=== PATIENT | female | born 1945 | race Two or more races ===

== ENCOUNTER 2023-11-13 11:01 | Inpatient (IN) | payer MEDICAID ==
[~2023-11-13] VITALS: Ht 160 cm; Wt 45.4 kg
[2023-11-13 11:23] LABS: BASOPHILS # (AUTO) 0.1 K/uL (0.0-0.2); EOSINOPHILS % (AUTO) 0.2 % (0.0-6.0); HEMATOCRIT 32 % (33-45); LYMPHOCYTES # (AUTO) 0.8 K/uL (0.8-4.8); LYMPHOCYTES % (AUTO) 13.6 % (20.0-44.0); MEAN CORPUSCULAR HEMOGLOBIN 33 PG (26.0-33.0); MEAN CORPUSCULAR HGB CONC 35 g/dl (31.0-36.0); MEAN CORPUSCULAR VOLUME 95 fL (82-100); MONOCYTES # (AUTO) 0.4 K/uL (0.1-1.30); MONOCYTES % (AUTO) 7.6 % (2.0-12.0); NEUTROPHILS # (AUTO) 4.4 K/uL (1.8-8.9); NEUTROPHILS % (AUTO) 77.6 % (43.0-81.0); PLATELET COUNT (AUTO) 388 K/uL (150-450); RED BLOOD CELL COUNT(AUTO) 3.34 MIL/uL (4.0-5.2); RED CELL DISTRIBUTION WIDTH 13.4 % (11.5-15.0); WHITE BLOOD COUNT (AUTO) 5.6 K/uL (4.3-11.0)
[2023-11-13] MEDS ORDERED: ASPIRIN 325 MG TABLET ONE (11:49)
[2023-11-13] MEDS: ASPIRIN 325 MG TABLET PO ONE (11:54)
[2023-11-13 11:58] LABS: ALANINE AMINOTRANSFERASE 53 U/L (12-78); ALBUMIN 3.6 g/dL (3.4-5.0); ALKALINE PHOSPHATASE 131 U/L (46-116); ASPARTATE AMINOTRANSFERASE 37 U/L (15-37); BILIRUBIN,DIRECT 0.1 mg/dL (0.0-0.2); BILIRUBIN,TOTAL 0.5 mg/dL (0.2-1.0); CALCIUM, SERUM 8.3 mg/dL (8.5-10.1); CARBON DIOXIDE 26 mmol/L (21-32); CHLORIDE 88 mmol/L (98-107); GLUCOSE 115 mg/dL (74-106); NT-PRO BNP 1182 pg/mL (0-125); POTASSIUM 3.7 mmol/L (3.5-5.1); TOTAL PROTEIN, SERUM 7.4 g/dL (6.4-8.2); UREA NITROGEN, BLOOD 9 mg/dL (7-18)
[2023-11-13 12:00] LABS: SODIUM SERUM 120 mmol/L (136-145)
[2023-11-13] MEDS: IV NS 0.9% 1,000 ML BAG IV ONE (12:30)
[2023-11-13] MEDS ORDERED: ATEN100T PO (12:47)
[2023-11-13] MEDS ORDERED: ERGO500093 PO (12:47)
[2023-11-13] MEDS ORDERED: AMIO200T5 PO (12:47)
[2023-11-13] MEDS ORDERED: VOQUEZNA PO (12:47)
[2023-11-13] MEDS ORDERED: LOSA50TA39 PO (12:47)
[2023-11-13] MEDS ORDERED: MORPHINE SULFATE INJ 2 MG/ML DISP.SYRIN IV PRN (13:00)
[2023-11-13] MEDS ORDERED: ONDANSETRON HCL/PF 4 MG/2 ML VIAL IVP PRN (13:00)
[2023-11-13] MEDS ORDERED: ACETAMINOPHEN 325 MG TABLET PO PRN (13:00)
[2023-11-13 14:30] VITALS: BP 133/75; TEMP 98.1
[2023-11-13 16:00] VITALS: BP 145/61; TEMP 98.2; O2SAT 98
[2023-11-13] MEDS: ATENOLOL 50 MG TABLET PO SCH (18:14)
[2023-11-13 20:00] VITALS: BP 148/63; TEMP 97.9; O2SAT 97
[2023-11-13 20:35] LABS: APPEARANCE,URINE CLEAR (CLEAR); BILIRUBIN,URINE NEGATIVE (NEGATIVE); BLOOD, URINE TRACE-INTA Ery/uL (NEGATIVE); COLOR,URINE YELLOW (YELLOW); KETONES,URINE NEGATIVE (NEGATIVE); LEUKOCYTE ESTERASE ,URINE 3+ (NEGATIVE); NITRITE, URINE NEGATIVE (NEGATIVE); PROTEIN,URINE NEGATIVE (NEGATIVE); UGLUCOSE NEGATIVE (NEGATIVE); UROBILINOGEN,URINE 0.2 EU/dL (0.2)
[2023-11-13 21:09] LABS: RBC,URINE 0-2 /HPF (0-2)
[2023-11-13 21:10] LABS: ADD URINE CULTURE YES; BACTERIA,URINE 2+ /HPF (None Seen)
[2023-11-14] VITALS: BP 139/68; TEMP 97.5; O2SAT 97
[2023-11-14 04:00] VITALS: BP 151/82; TEMP 97.7; O2SAT 95
[2023-11-14 06:51] LABS: BASOPHILS % (AUTO) 0.6 % (0.0-2.0); EOSINOPHILS % (AUTO) 0.5 % (0.0-6.0); HEMATOCRIT 34 % (33-45); HEMOGLOBIN 11.7 g/dL (11.5-14.8); LYMPHOCYTES # (AUTO) 0.9 K/uL (0.8-4.8); LYMPHOCYTES % (AUTO) 14.9 % (20.0-44.0); MEAN CORPUSCULAR HEMOGLOBIN 33 PG (26.0-33.0); MEAN CORPUSCULAR HGB CONC 35 g/dl (31.0-36.0); MEAN CORPUSCULAR VOLUME 95 fL (82-100); MONOCYTES # (AUTO) 0.4 K/uL (0.1-1.30); MONOCYTES % (AUTO) 7.4 % (2.0-12.0); NEUTROPHILS # (AUTO) 4.4 K/uL (1.8-8.9); NEUTROPHILS % (AUTO) 76.6 % (43.0-81.0); PLATELET COUNT (AUTO) 390 K/uL (150-450); RED BLOOD CELL COUNT(AUTO) 3.55 MIL/uL (4.0-5.2); RED CELL DISTRIBUTION WIDTH 13.1 % (11.5-15.0); WHITE BLOOD COUNT (AUTO) 5.7 K/uL (4.3-11.0)
[2023-11-14 06:56] LABS: ALANINE AMINOTRANSFERASE 48 U/L (12-78); ALBUMIN 3.4 g/dL (3.4-5.0); ALKALINE PHOSPHATASE 132 U/L (46-116); ASPARTATE AMINOTRANSFERASE 33 U/L (15-37); BILIRUBIN,TOTAL 0.3 mg/dL (0.2-1.0); CALCIUM, SERUM 8.6 mg/dL (8.5-10.1); CARBON DIOXIDE 29 mmol/L (21-32); CHLORIDE 99 mmol/L (98-107); CREATININE 0.8 mg/dL (0.6-1.3); GLUCOSE 88 mg/dL (74-106); MAGNESIUM 2.7 mg/dL (1.8-2.4); PHOSPHORUS 4.1 mg/dL (2.5-4.9); POTASSIUM 3.9 mmol/L (3.5-5.1); SODIUM SERUM 135 mmol/L (136-145); TOTAL PROTEIN, SERUM 7.4 g/dL (6.4-8.2); UREA NITROGEN, BLOOD 9 mg/dL (7-18)
[2023-11-14 07:04] LABS: CHOLESTEROL 173 mg/dL (<200); HDL CHOLESTEROL 47 mg/dL (40-60); LDL 101 mg/dL (0-99); TRIGLYCERIDES 113 mg/dL (30-150); URIC ACID 3.2 mg/dL (2.6-7.2)
[2023-11-14 08:00] VITALS: BP 155/61; TEMP 97.9; O2SAT 100
[2023-11-14] MEDS: ENSURE ENLIVE 237 ML LIQUID (VANILLA) PO SCH ×2 (08:30→17:20)
[2023-11-14] MEDS: AMIODARONE HCL 200 MG TABLET PO SCH (08:31)
[2023-11-14] MEDS: CEFTRIAXONE 1 G in IV D5W 50 ML IV SCH (09:37)
[2023-11-14 12:00] VITALS: BP 141/64; TEMP 98.2; O2SAT 99
[2023-11-14] MEDS: LOSARTAN POTASSIUM 50 MG TABLET PO SCH (12:11)
[2023-11-14 15:38] LABS: OCCULT BLOOD STOOL NEGATIVE (NEGATIVE)
[2023-11-14 16:00] VITALS: BP 151/66; TEMP 97.7; O2SAT 100
[2023-11-14] MEDS: APIXABAN 2.5 MG TABLET PO SCH (17:19)
[2023-11-14 20:00] VITALS: BP 127/90; TEMP 97.6; O2SAT 100
[2023-11-15] VITALS: BP 137/70; TEMP 97.5; O2SAT 100
[2023-11-15 04:00] VITALS: BP 155/95; TEMP 97.5; O2SAT 100
[2023-11-15 08:00] VITALS: BP 160/72; TEMP 97.9; O2SAT 100
[2023-11-15] MEDS: DRONEDARONE HYDROCHLORIDE 400 MG TABLET PO SCH (08:08)
[2023-11-15] MEDS: DOCUSATE SODIUM 100 MG CAPSULE PO SCH (11:37)
[2023-11-15] MEDS ORDERED: APIX2.5T PO (11:45)
[2023-11-15] MEDS ORDERED: DRON400T6 PO (11:45)
[2023-11-15] MEDS ORDERED: NITR100C6 PO (11:45)
[2023-11-15 12:00] VITALS: BP 133/62; TEMP 97.9; O2SAT 97
[2023-11-15] MEDS: NITROFURANTOIN/MONOHYDRATE MACROCRYSTALS 100 MG CAPSULE PO SCH (12:09)
[2023-11-15 16:00] VITALS: BP 135/70; TEMP 97.9; O2SAT 99
[2023-11-15 20:00] VITALS: BP_SYST 104; BP_SYST 164; BP_DIAS 63; BP_DIAS 73; TEMP 97.3; TEMP 97.6; O2SAT 97
[2023-11-15] MEDS: hydrALAZINE HCL IV 20 MG VIAL IV PRN (20:42)
[2023-11-15] MEDS ORDERED: NITROFURANTOIN/MONOHYDRATE MACROCRYSTALS 100 MG CAPSULE PO SCH (21:00)
[2023-11-16] VITALS: BP 104/63; TEMP 97.3; O2SAT 97
[2023-11-16 04:00] VITALS: BP 123/62; TEMP 98.4; O2SAT 97
[2023-11-16 08:00] VITALS: BP 137/67; TEMP 97.3; O2SAT 99
[2023-11-16] MEDS ORDERED: CT SWABBABLE VALVE TRANS SET 1 EA INFUS.SET MC ONE (10:10)
[2023-11-16] MEDS ORDERED: IV NS 0.9% 250 ML IV ONE (10:10)
[2023-11-16] MEDS ORDERED: IOHEXOL-350 100 ML VIAL IV ONE (10:10)
[2023-11-16] MEDS ORDERED: METOPROLOL TARTRATE INJ 5 MG/5 ML AMPUL IVP PRN (10:30)
[2023-11-16] MEDS: NITROGLYCERIN 0.4 MG/TAB BOTTLE SL ONE (11:25)
[2023-11-16 12:00] VITALS: BP 112/60; TEMP 97.5; O2SAT 98
[2023-11-16 13:00] VITALS: BP 112/60
[2023-11-16 14:22] LABS: CALCIUM, SERUM 8.7 mg/dL (8.5-10.1); CARBON DIOXIDE 27 mmol/L (21-32); CHLORIDE 91 mmol/L (98-107); CREATININE 0.8 mg/dL (0.6-1.3); GLUCOSE 110 mg/dL (74-106); POTASSIUM 3.9 mmol/L (3.5-5.1); SODIUM SERUM 126 mmol/L (136-145); UREA NITROGEN, BLOOD 9 mg/dL (7-18)
== END 2023-11-16 15:20 | disposition home or self-care (01) | DRG 201 ==
LOC: ER 11:08 → TELE1 14:11
PROVIDERS: ADMIT Internal Medicine; ATTEND Internal Medicine
DX: I48.0 Paroxysmal atrial fibrillation (principal); I11.0 Hypertensive heart disease with heart failure; I50.32 Chronic diastolic (congestive) heart failure; E87.1 Hypo-osmolality and hyponatremia; N39.0 Urinary tract infection, site not specified; D64.9 Anemia, unspecified; B96.89 Other specified bacterial agents as the cause of diseases classified elsewhere; R07.9 Chest pain, unspecified
CPT/HCPCS: 36415; 71045-TC; 75574; 80048-TC; 80053-TC; 80061-TC; 80076-TC; 81001; 82272-TC; 82306; 83735-TC; 83880; 84100-TC; 84443-TC; 84484-TC; 84550-TC; 85025-TC; 87086-TC; 93307-TC; A4223; G0378; J0360; J0696; J7030; J7040; J7050; J7060; Q9967